=== PATIENT | female | born 1950 | race Asian ===

== ENCOUNTER 2022-05-04 11:40 | Day surgery (SDC) | payer OTHER ==
[~2022-05-04] VITALS: Ht 149.9 cm; Wt 56.8 kg
[~2022-05-04 11:40] MED LIST: RALO60
[2022-05-04] MEDS ORDERED: RALO60 PO (12:09)
== END 2022-05-04 14:10 | disposition home or self-care (01) ==
LOC: ORSCSDS 11:40
PROVIDERS: Internal Medicine Gastroenterology
PROC: 0DJD8ZZ Inspection of Lower Intestinal Tract, Via Natural or Artificial Opening Endoscopic (ICD-10-PCS; principal; 2022-05-04 12:45)
DX: Z12.11 Encounter for screening for malignant neoplasm of colon (principal); K57.30 Diverticulosis of large intestine without perforation or abscess without bleeding; K64.8 Other hemorrhoids; Z79.899 Other long term (current) drug therapy
CPT/HCPCS: J0330; J0461; J2250; J2405; J2704; J7120